=== PATIENT | male | born 1960 | race Caucasian/White ===

== ENCOUNTER → 2019-09-12 13:22 | Outpatient (REF) | payer MEDICARE, SELFPAY | LOC: ANHLAB 13:22 | PROVIDERS: PCP Family Medicine; Visit Provider Nurse Practitioner Family | DX: D18.09 Hemangioma of other sites (principal) | CPT/HCPCS: 88304; 88305 ==

== ENCOUNTER 2020-06-21 10:27 | Outpatient (CLI) | payer OTHER, MEDICARE, SELFPAY ==
[2020-06-21 12:11] LABS: Basophils Percent Auto 0.5 % (0.2-1.2); Eosinophils Absolute Auto 0.2 K/mm3 (0-0.3); Eosinophils Percent Auto 1.9 % (0-4.4); Hematocrit 45.9 % (42.0-52.0); Hemoglobin 15.8 g/dL (14.0-18.0); Immature Granulocyte Absolute 0.03 K/mm3 (0.00-0.031); Immature Granulocyte Percent A 0.4 % (0-0.5); Lymphocytes Absolute Auto 1.59 K/mm3 (0.9-3.2); Lymphocytes Percent Auto 20.6 % (18.3-44.2); Mean Corpuscular HGB Conc 34.4 g/dl (32-36); Mean Corpuscular Hemoglobin 30.7 pg (26-34); Mean Corpuscular Volume 89.3 fl (80-100); Mean Platelet Volume 10.6 fl (7.4-10.4); Monocytes Absolute Auto 0.5 K/mm3 (0.1-0.6); Monocytes Percent Auto 6.5 % (2.6-8.5); Neutrophils Absolute Auto 5.4 K/mm3 (1.3-6.7); Neutrophils Percent Auto 70.1 % (45.5-73.1); Platelet Count Result 244 k/mm3 (150-375); Red Blood Count 5.14 M/mm3 (4.6-6.20); Red Cell Distribution Width 12.3 % (11.5-14.5); White Blood Count 7.7 K/mm3 (4.5-10.0)
[2020-06-21 12:31] LABS: Anion Gap 5 mmol/L (8-16); Blood Urea Nitrogen 16 mg/dL (9-20); Calcium 9.4 mg/dL (8.4-10.2); Carbon Dioxide 32 mmol/L (22-30); Chloride 100 mmol/L (98-107); Cholesterol 148 mg/dL (0-200); Estimated Glomerular Filt Rate > 60; Glucose 236 mg/dL (75-110); HDL Direct 34 mg/dL; Potassium 3.9 mmol/L (3.4-5.0); Sodium 137 mmol/L (137-145); Triglycerides 202 mg/dL (<150)
[2020-06-21 12:41] LABS: LDL Cholesterol Direct 90 mg/dL
[2020-06-21 12:46] LABS: Creatinine Urine 122.9 mg/dL
[2020-06-21 12:51] LABS: MALB Creatinine Ratio 67.5 mg/g (0-30); Microalbumin Urine Random 82.9 mg/L (0-16.7)
[2020-06-21 13:01] LABS: Prostate Specific Antigen 1.3 ng/mL (< OR = 4.0)
[2020-06-21 14:32] LABS: Hemoglobin A1C 9.3 % (<5.7)
== END 2020-06-21 10:28 | disposition home or self-care (01) ==
PROVIDERS: PCP Family Medicine; Visit Provider Family Medicine
DX: E11.29 Type 2 diabetes mellitus with other diabetic kidney complication (principal); Z12.5 Encounter for screening for malignant neoplasm of prostate; I10 Essential (primary) hypertension; R80.9 Proteinuria, unspecified; E78.5 Hyperlipidemia, unspecified; Z13.220 Encounter for screening for lipoid disorders
CPT/HCPCS: 36415; 80048; 80061; 82043; 83036; 84153; 85025; G0103

== ENCOUNTER → 2021-04-14 09:48 | Outpatient (CLI) | payer OTHER, MEDICARE, SELFPAY ==
[2021-04-14 20:28] LABS: SARS-CoV-2 RNA PCR Positive
== END ==
PROVIDERS: PCP Family Medicine; Visit Provider Family Medicine
DX: U07.1 COVID-19 (principal)
CPT/HCPCS: C9803; U0003; U0005

== ENCOUNTER 2021-08-03 09:53 | Outpatient (CLI) | payer OTHER, MEDICARE, SELFPAY ==
[2021-08-03 10:33] LABS: Basophils Absolute Auto 0.1 K/mm3 (0.0-0.1); Basophils Percent Auto 0.7 % (0.2-1.2); Eosinophils Absolute Auto 0.2 K/mm3 (0-0.3); Eosinophils Percent Auto 2.2 % (0-4.4); Hematocrit 49.1 % (42.0-52.0); Immature Granulocyte Absolute 0.05 K/mm3 (0.00-0.031); Immature Granulocyte Percent A 0.6 % (0-0.5); Lymphocytes Absolute Auto 2.01 K/mm3 (0.9-3.2); Mean Corpuscular HGB Conc 34.6 g/dl (32-36); Mean Corpuscular Hemoglobin 31.8 pg (26-34); Mean Corpuscular Volume 91.9 fl (80-100); Mean Platelet Volume 10.3 fl (7.4-10.4); Monocytes Absolute Auto 0.6 K/mm3 (0.1-0.6); Neutrophils Absolute Auto 5.8 K/mm3 (1.3-6.7); Neutrophils Percent Auto 66.5 % (45.5-73.1); Platelet Count Result 207 k/mm3 (150-375); Red Blood Count 5.34 M/mm3 (4.6-6.20); Red Cell Distribution Width 12.7 % (11.5-14.5); White Blood Count 8.7 K/mm3 (4.5-10.0)
[2021-08-03 10:55] LABS: Microalbumin Urine Random 49.7 mg/L (0-16.7)
[2021-08-03 10:57] LABS: Creatinine Urine 57.5 mg/dL; MALB Creatinine Ratio 86.4 mg/g (0-30)
[2021-08-03 11:48] LABS: Hemoglobin A1C 7.6 % (<5.7)
[2021-08-03 12:04] LABS: Alanine Aminotransferase 27 U/L (4-50); Albumin Level 4.4 g/dL (3.5-5.1); Alkaline Phosphatase 61 U/L (38-126); Anion Gap 9 mmol/L (8-16); Aspartate Amino Transferase 24 U/L (17-59); Bilirubin,Total 0.4 mg/dL (0.2-1.3); Blood Urea Nitrogen 27 mg/dL (9-20); Calcium 9.4 mg/dL (8.4-10.2); Carbon Dioxide 26 mmol/L (22-30); Chloride 104 mmol/L (98-107); Cholesterol 178 mg/dL (0-200); Estimated Glomerular Filt Rate > 60; Glucose 196 mg/dL (65-110); HDL Direct 33 mg/dL; Potassium 4.1 mmol/L (3.4-5.0); Sodium 139 mmol/L (137-145); Triglycerides 223 mg/dL (<150)
[2021-08-03 12:18] LABS: LDL Cholesterol Direct 98 mg/dL
[2021-08-03 13:23] LABS: Prostate Specific Antigen 1.6 ng/mL (< OR = 4.0); Thyroid Stimulating Hormone 0.925 uIU/mL (0.465-4.680)
== END 2021-08-03 09:54 | disposition home or self-care (01) ==
PROVIDERS: PCP Family Medicine; Visit Provider Family Medicine
DX: Z12.5 Encounter for screening for malignant neoplasm of prostate (principal); E11.29 Type 2 diabetes mellitus with other diabetic kidney complication; I10 Essential (primary) hypertension; R10.9 Unspecified abdominal pain; R80.9 Proteinuria, unspecified; E78.5 Hyperlipidemia, unspecified; Z13.220 Encounter for screening for lipoid disorders
CPT/HCPCS: 36415; 80048; 80061; 80076; 82043; 83036; 84153; 84443; 85025; G0103

== ENCOUNTER 2022-11-05 11:15 | Outpatient (RCR) | payer MEDICARE, SELFPAY ==
--- NOTE | 2022-10-26 15:47 | OPREHPOC ---
Outpatient Therapy Plan of Care This is a Multidisciplinary Plan of Care that may contain components documented by all disciplines (PT, OT, and ST.) PT Problem 1 PT Problem #1 Knowledge Deficit PT Goal 1 Goal Independent with HEP Target Visit 8 PT Problem 2 PT Problem #2 Impaired Endurance PT Goal 1 Goal Able to walk 2 laps without needing to sit down using small based quad cane. Target Visit 8 PT Problem 3 PT Problem #3 Impaired Gait PT Goal 1 Goal Ambulate independent with small based quad cane on uneven surface outside Target Visit 8 PT Goal 2 Goal up and down 1 flight of stairs with small based quad cane Independent. Target Visit 8
--- NOTE | 2022-10-26 15:48 | PTOPEVAL1 ---
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 Patient reports he is rock solid with the crutches and does do the quad cane on occasion, but not consistently and does not have sabina in it when he is walking on unstable surfaces. (Physical therapist recommended going to an IP rehab stay, patient reports it doesn't work into his busy schedule). Patient states he is very active going boating, hunting deer, and being out in the [place]. Reported Pain Level Pain Score 0: Self Report Assessment PT Clinical Summary Rich is a 62 year old male coming into the clinic with a diagnosis of Ataxia and LLE AKA. Patient wanting to progress away from his crutches. Patient has endurance and balance issues when using the small based quad cane compared to LILLIE crutches. Physical therapy will work on improving his endurance and balance while using the small based quad cane. Plan of Care Interventions Electrical Stimulation,Gait Training,Hot Pack/Cold Pack,Manual Therapy,Neuro Re-education,Patient/ Caregiver Education,Therapeutic Activities, Therapeutic Exercise,Ultrasound Other Interventions cupping, taping, IASTM PT Services Indicated Yes Treatment Frequency and 2x/wk for 4 weeks Duration These treatments will address the objective and functional deficits as defined above. The patient will be advanced safely and appropriately in order for the patient to progress towards his/her prior level of function. Additional exercises will be introduced and as well as a comprehensive home exercise program upon discharge, if needed, ?to ensure carryover of functional gains achieved in the clinic. This treatment plan has been reviewed and agreement upon by the patient.
--- NOTE | 2022-11-19 12:25 | PCPTNOTE ---
Pt. called this date to cancel reporting he was not feeling well.
--- NOTE | 2022-11-22 11:55 | PCPTNOTE ---
Patient called & cancelled scheduled appointment this date and 11/24 secondary to a family emergency.
--- NOTE | 2022-12-13 08:29 | PCPTNOTE ---
Admitting Provider: Attending Provider: Reynaldo Fountain MD Patient:Vinh Ken Date of :1960 Patient has not returned for any further treatments since 11/05/2022, therefore he will be discharged at this time. Patient?s initial visit was on 10/26/2022 12:30 and he had a total of 4 visits with 3 cancellations. The goals have been not met. Thank you for referring this patient to [facility]. Please review, sign, date and return this discharge summary CAROLANN. I have been updated about the patient's current status and I agree with discharge from the above service at this time. Referring Physician Date
== END 2022-12-13 12:24 | disposition home or self-care (01) ==
LOC: ANHPT 11:15
PROVIDERS: PCP Family Medicine; Visit Provider Family Medicine
DX: R27.0 Ataxia, unspecified (principal); S78.112D Complete traumatic amputation at level between left hip and knee, subsequent encounter
CPT/HCPCS: 97110; 97161; 97530

== ENCOUNTER 2023-10-19 08:23 | Outpatient (CLI) | payer MEDICARE, SELFPAY ==
[2023-10-19 08:57] LABS: Hemoglobin 15.3 g/dL (14.0-18.0); Mean Corpuscular Hemoglobin 31.1 pg (26-34); Mean Corpuscular Volume 91.5 fl (80-100); Mean Platelet Volume 10.4 fl (7.4-10.4); Platelet Count Result 202 k/mm3 (150-375); Red Blood Count 4.92 M/mm3 (4.6-6.20); Red Cell Distribution Width 13.2 % (11.5-14.5); White Blood Count 8.2 K/mm3 (4.5-10.0)
[2023-10-19 09:16] LABS: Alanine Aminotransferase 20 U/L (6-50); Albumin Level 4.2 g/dL (3.5-5.1); Alkaline Phosphatase 59 U/L (38-126); Anion Gap 8 mmol/L (4-12); Aspartate Amino Transferase 20 U/L (17-59); Bilirubin,Total 0.5 mg/dL (0.2-1.3); Blood Urea Nitrogen 27 mg/dL (9-20); Calcium 9.2 mg/dL (8.4-10.2); Carbon Dioxide 29 mmol/L (22-30); Chloride 104 mmol/L (98-107); Cholesterol 91 mg/dL (0-200); Estimated Glomerular Filt Rate > 60; Glucose 165 mg/dL (65-110); HDL Direct 28 mg/dL; Potassium 3.9 mmol/L (3.4-5.0); Sodium 141 mmol/L (137-145); Triglycerides 184 mg/dL (<150)
[2023-10-19 09:27] LABS: LDL Cholesterol Direct 50 mg/dL
[2023-10-19 09:43] LABS: Prostate Specific Antigen 1.6 ng/mL (< OR = 4.0)
[2023-10-19 09:51] LABS: Creatinine Urine 63.9 mg/dL
[2023-10-19 09:55] LABS: MALB Creatinine Ratio 183.6 mg/g (0-30); Microalbumin Urine Random 117.3 mg/L (0-16.7)
[2023-10-23 09:03] LABS: Testosterone Free 56 pg/mL (35.0-155.0); Testosterone Total 379 ng/dL (250-1100)
== END 2023-10-19 08:24 | disposition home or self-care (01) ==
PROVIDERS: PCP Family Medicine; Visit Provider Family Medicine
DX: E78.5 Hyperlipidemia, unspecified (principal); Z13.220 Encounter for screening for lipoid disorders; E11.29 Type 2 diabetes mellitus with other diabetic kidney complication; R80.9 Proteinuria, unspecified; I10 Essential (primary) hypertension; Z12.5 Encounter for screening for malignant neoplasm of prostate; N52.03 Combined arterial insufficiency and corporo-venous occlusive erectile dysfunction
CPT/HCPCS: 36415; 80048; 80061; 80076; 82043; 84153; 84402; 84403; 84443; 85027; G0103

== ENCOUNTER 2024-11-07 08:08 | Outpatient (CLI) | payer MEDICARE, SELFPAY ==
--- OUTSIDE RECORDS SUMMARY | 2024-11-07 08:11 | XMS_ITS | Clinical Summary ---
Author Organization [facility] Address [address] [place] [address] Care Team Providers Care Patient Care Technician Name Role Phone Unavailable Primary Care Provider Unavailabl e Source Comments [facility],non-owned Affiliates and Associated Physician Practices is amultiple site organization consisting of ambulatory clinics and hospital sitesin [place], [place], [place] and [place]. This disclosure is being madepursuant to the Care Everywhere program and may not contain all information available regarding this patient. Last updated 18.[facility] Allergies Active Allergy Reactions Criticality Noted Date Comments Sulfa Drugs Rash Low 07/14/2011 Medications * Be aware that medications may not be up to date on this document. Alwaysverify current medications with the patient. Warfarin Sodium (COUMADIN PO) Take 13 mg by mouth once daily. Active glimepiride (AMARYL) 4 MG tablet Take 4 mg by mouth daily with breakfast. Active metFORMIN (GLUCOPHAGE) 1000 MG tablet Take 1,000 mg by mouth daily with breakfast. Active quinapril - hydrochlorothiazide (ACCURETIC) 20-12.5 MG tablet Take 1 Tab by mouth once daily. Active albuterol-ipratropium (COMBIVENT) 18-103 MCG/ACT inhaler Inhale 2 Puffs by mouth 4 times daily as needed for Shortness of Breath or Wheezing. 1 Inhaler 1 012 Active docusate sodium (COLACE) 100 MG capsule Take 1 Cap by mouth 2 times daily. Take to prevent constipation while on narcotic pain medications. 60 0 012 Active methocarbamol (ROBAXIN) 750 MG tablet Take 1 Tab by mouth 4 times daily as needed for Muscle Spasms. 180 0 012 Active enoxaparin (LOVENOX) injectionIndications:D eep Vein Thrombosis Inject 150 mg subcutaneously every 12 hours. Wait for one week before taking lovenox or coumadin. You should start the lovenox injections on June 04 at the same time you resume your usual coumadin dose of 13mg daily. Do not take any lovenox or coumadin for the next week due to risk of bleeding from your surgical site. Indications: Blood Clot in a Deep Vein 10 Syringe 1 012 Active oxycodone-acetaminophe n (PERCOCET) 5-325 MG tablet Take 1 Tab by mouth every 6 hours as needed for Pain. 60 Tab 0 012 Active Active Problems Problem Noted Date Diagnosed Date Follow-up examination, following other surgery 0 06/09/2011 Wheezing 05/25/2011 Degeneration of lumbar or lumbosacral interverte bral disc 04/18/2011 Displacement of lumbar inter vertebral disc without myelopathy 04/18/2011 Social History Tobacco Use Types Packs/Day Years Used Date Smoking Tobacco: Every Day Cigarettes 1.5 35 Smokeless Tobacco: Never Tobacco Cessation:Ready to Q uit: Yes; Counseling Given: Yes Alcohol Use Standard Drinks/Week Comments Yes 1.7 (1 standard drink = 0.6 oz p ure alcohol) OCCASIONAL Sex and Gender Information Value Date Recorded Sex Assigned at Not on file Legal Sex Male 12:49 PM [employer] Gender Identity Not on file Sexual Orientation Not on file Last Filed Vital Signs Vital Sign Reading Time Taken Comments Blood Pressure 119/61 05/28/2011 2:51 PM [employer] Pulse 83 05/28/2011 2:51 PM [employer] Temperature 36 C (96.8 F) 05/28/2011 12:00 PM [employer] Respiratory Rate 17 05/28/2011 2:51 PM [employer] Oxygen Saturation 96% 05/28/2011 2:51 PM [employer] Inhaled Oxygen Concentration 21% 05/25/2011 8 :09 PM [employer] Weight 145.2 kg (320 lb) 07/14/2011 11:12 AM [employer] Height 180.3 cm (5' 11) 07/14/2011 11:12 AM [employer] Body Mass Index 44.63 07/14/2011 11:12 AM [employer] Plan of Treatment Health Maintenance Due Date Last Done Comments COLOGUARD (AGES 45-75) - COL ON CA SCREENING 1960 COLON MONITORING 1959 COLONOSCOPY - COLON CA SCREENING 1959 CT COLONOGRAPHY - COLON CA SCREENING 1959 Colorectal Cancer Screening 1959 FIT - COLON CA SCREENING 1959 FLEX SIG - COLON CA SCREENING 1959 LIPID TESTING 1959 HIV SCREENING 1974 HEPATITIS C SCREENING 06/25/1977 DTAP/TDAP/TD VACCINES (1 - Tdap) 1978 PNEUMOCOCCAL VACCINE 50+ (1 of 1 - PCV) 2009 ZOSTER VACCINE (1 of 2) 2009 COVID-19 VACCINE (1 - 2023-2 5 season) 2024 DEPRESSION SCREENING 05/09/2024 AAA SCREENING 2024 INFLUENZA VACCINE (Season Ended) 2025 Respiratory Syncytial Virus (RSV) Vaccine Pt: or over 60 yrs (1 - 1-dose 75+ series) 2034 HEPATITIS B VACCINE Aged Out No longe r eligible based on patient's age to complete this topic HIB VACCINE Aged Out No longer eligi ble based on patient's age to complete this topic HPV VACCINE Aged Out No longer eligi ble based on patient's age to complete this topic MENINGOCOCCAL (Group B) VACC INE SHARED DECISION-MAKING Aged Out No longer eligibl e based on patient's age to complete this topic MENINGOCOCCAL GROUPS A/C/Y/W VACCINE Aged Out No longer eligible b ased on patient's age to complete this topic Insurance MEDICARE [employer] MANAGED MEDICARE ADV Advance Directives * FULL RESUSCITATION (Latest Code Status on File) Date Activated Date Inactivated Comments 05/27/2011 6:25 PM 05/29/2011 4:24 AM * FULL RESUSCITATION Date Activated Date Inactivated Comments 05/25/2011 7:32 PM 05/27/2011 6:25 PM
[2024-11-07 08:55] LABS: Hematocrit 45.5 % (42.0-52.0); Hemoglobin 15.3 g/dL (14.0-18.0); Mean Corpuscular HGB Conc 33.6 g/dl (32-36); Mean Corpuscular Hemoglobin 30.6 pg (26-34); Mean Corpuscular Volume 91.0 fl (80-100); Platelet Count Result 212 k/mm3 (150-375); Red Blood Count 5.00 M/mm3 (4.6-6.20); White Blood Count 9.0 K/mm3 (4.5-10.0)
[2024-11-07 09:07] LABS: Alanine Aminotransferase 25 U/L (6-50); Albumin Level 4.2 g/dL (3.5-5.1); Alkaline Phosphatase 57 U/L (38-126); Anion Gap 12 mmol/L (4-12); Aspartate Amino Transferase 25 U/L (17-59); Bilirubin,Total 0.6 mg/dL (0.2-1.3); Blood Urea Nitrogen 30 mg/dL (9-20); Calcium 9.5 mg/dL (8.4-10.2); Carbon Dioxide 24 mmol/L (22-30); Chloride 104 mmol/L (98-107); Cholesterol 95 mg/dL (0-200); Estimated Glomerular Filt Rate > 60; Glucose 184 mg/dL (65-110); HDL Direct 31 mg/dL; Potassium 3.7 mmol/L (3.4-5.0); Sodium 140 mmol/L (137-145); Total Protein 7.4 g/dL (6.3-8.2); Triglycerides 205 mg/dL (<150)
[2024-11-07 09:37] LABS: Prostate Specific Antigen 1.8 ng/mL (< OR = 4.0); Thyroid Stimulating Hormone 0.721 uIU/mL (0.465-4.680)
[2024-11-07 11:37] LABS: MALB Creatinine Ratio 218.2 mg/g (0-30)
== END 2024-11-07 08:09 | disposition home or self-care (01) ==
PROVIDERS: PCP Family Medicine; Visit Provider Family Medicine
DX: Z12.5 Encounter for screening for malignant neoplasm of prostate (principal); E78.5 Hyperlipidemia, unspecified; E11.29 Type 2 diabetes mellitus with other diabetic kidney complication; R80.9 Proteinuria, unspecified; I10 Essential (primary) hypertension; Z13.220 Encounter for screening for lipoid disorders
CPT/HCPCS: 36415; 80048; 80061; 80076; 82043; 84153; 84443; 85027; G0103